=== PATIENT | male | born 1960 | race Caucasian/White ===

== ENCOUNTER 2019-01-09 11:33 | Emergency (ER) | payer BC ==
[2019-01-09 11:44] VITALS: BP 135/82
[2019-01-09] MEDS ORDERED: oxyCODONE 5 MG TABLET PO STA (12:47)
[2019-01-09] MEDS ORDERED: IBUPROFEN 800 MG TABLET PO STA (12:47)
--- NOTE | 2019-01-09 12:48 | ED Physician Documentation ---
PD HPI LOWER EXT INJURY - Stated complaint Stated Complaint: R KNEE PX - Chief complaint Chief Complaint: Ext Problem - History obtained from History obtained from: Patient, Family () - History of Present Illness PD HPI LOW EXT INJURY LOCATION: Right (He had been having some ongoing problems with the right knee for the last 5 months after an injury. He was seen in the orthopedic clinic this morning and had an arthrocentesis and steroid injection in about 10 minutes after leaving the office developed severe internal diffuse knee pain with difficulty walking. There is no fever.) Review of Systems Constitutional: reports: Reviewed and negative Nose: reports: Reviewed and negative Cardiac: reports: Reviewed and negative PD PAST MEDICAL HISTORY - Past Medical History Past Medical History: Yes Neuro: Parkinson's - Past Surgical History Past Surgical History: Yes General: Other - Present Medications Home Medications: Ambulatory Orders Medication Instructions Recorded Confirmed Carbidopa/Levodopa [Rytary ER 45 mg PO 5XD 01/09/19 01/09/19 48.75 mg-195 mg Cap] Oxycodone HCl/Acetaminophen 1 - 2 each PO Q6H PRN #14 tablet 01/09/19 [Percocet 5-325 mg Tablet] - Allergies Allergies/Adverse Reactions: Allergies Allergy/AdvReac Type Severity Reaction Status Date / Time No Known Drug Allergies Allergy Verified 01/09/19 11:44 - Social History Does the pt smoke?: No Smoking Status: Never smoker Does the pt drink ETOH?: Yes ETOH Use: Beer Does the pt have substance abuse?: No - Immunizations Immunizations are current?: Yes PD ED PE NORMAL - Vitals Vital signs reviewed: Yes - General General: Alert and oriented X 3, No acute distress - Extremities Extremities: Other (There is a moderate right knee effusion without significant bony tenderness. He has pain with extension. It is not warm or hot.) - Neuro Neuro: Alert and oriented X 3, Normal speech Results - Vitals Vitals: Vital Signs - 24 hr 01/09/19 11:39 Temperature 36.5 C Heart Rate 63 Respiratory 12 Rate Blood Pressure 135/82 H O2 Saturation 100 Oxygen O2 Source Room air PD MEDICAL DECISION MAKING - ED course ED course: This is a 58-year-old gentleman with new and worsening pain after an arthrocentesis and joint injection with steroids. The time course completely precludes an infectious etiology. Case discussed by phone with Dr. Pelayo who did the procedure who recommended ice and rest and follow-up sooner rather than later. Departure - Departure Disposition: 01 Home, Self Care Clinical Impression: Knee effusion, right Condition: Good Record reviewed to determine appropriate education?: Yes Instructions: ED Effusion Knee Prescriptions: Oxycodone HCl/Acetaminophen [Percocet 5-325 mg Tablet] 1 - 2 each PO Q6H PRN #14 tablet PRN Reason: pain Comments: If not rapidly improving call Dr. Pelayo's office for sooner follow-up, closer to the 7-10-day makenna rather than what was originally scheduled. Return if worse. Do not drink or drive while taking narcotic pain medication. Note that many narcotic pain relievers also contain Tylenol/acetaminophen. Please ensure that your total dose of acetaminophen from all sources does not exceed 3 g (3000 mg) per day. You may get constipated while on this medication. Take a stool softener such as Colace twice a day while you are on it. Also add an [id number] laxative such as senna or MiraLAX on any day that you do not have a bowel movement. If you received a narcotic pain medication or sedative while in the emergency department, do not drive for the next 24 hours.
== END 2019-01-09 13:34 | disposition home or self-care (01) ==
LOC: ED 11:33
DX: M25.461 Effusion, right knee (principal); G20 Parkinson's disease
CPT/HCPCS: 99283